=== PATIENT | female | born 1995 | race Caucasian/White ===

== ENCOUNTER 2021-01-23 05:37 | Emergency (ER) | payer OTHER ==
[~2021-01-23 05:37] MED LIST: PRENATAL VITAM1 EAC5 PO; UNISOM25 MG PO
[2021-01-23 06:13] LABS: HEMOGLOBIN 16.2 gm/dl (12.3-15.3); RED BLOOD COUNT 4.93 M/UL (4.00-5.10); WHITE BLOOD COUNT 13.3 K/UL (4.5-11.0)
[2021-01-23 06:39] LABS: BUN/CREATININE RATIO 17 (0-10)
[2021-01-23] MEDS ORDERED: PHENERGAN 25 MG25 M1 PO (09:49)
[2021-01-23] MEDS ORDERED: ZOFRAN ODT 4 MG4 MG SL (09:49)
== END 2021-01-23 10:11 | disposition home or self-care (01) ==
LOC: ER1 05:37
PROVIDERS: Emergency Medicine
DX: K52.9 Noninfective gastroenteritis and colitis, unspecified (principal); B34.9 Viral infection, unspecified; Z20.822 Contact with and (suspected) exposure to COVID-19
CPT/HCPCS: 72128; 72131; 80053; 83605; 83690; 84439; 84443; 84703; 85025; 87040; 93005; 96374; 96375; 96376; 99284; J2405; J7030; Q9967; U0002

== ENCOUNTER → 2021-01-29 | Outpatient (CLI) | payer SELFPAY ==
[~2021-01-29] MED LIST changes: +PHENERGAN 25 MG25 M1 PO; +ZOFRAN ODT 4 MG4 MG SL
== END ==
LOC: KOH-I 10:45
DX: M79.601 Pain in right arm (principal); I82.601 Acute embolism and thrombosis of unspecified veins of right upper extremity
CPT/HCPCS: 93971

== ENCOUNTER 2022-02-15 16:48 | Inpatient (IN) | payer OTHER ==
[~2022-02-15] VITALS: Ht 160 cm; Wt 66.2 kg
[2022-02-15] MEDS ORDERED: PRENATAL VITAM1 EAC3 PO (19:20)
[2022-02-15 19:24] LABS: RED BLOOD COUNT 3.76 M/UL (4.00-5.10); WHITE BLOOD COUNT 11.3 K/UL (4.5-11.0)
[2022-02-17] MEDS ORDERED: IBUPROFEN800 MG PO (14:46)
[2022-02-17] MEDS ORDERED: HYDROCODON-ACE1 EAC4 PO (14:46)
[2022-02-17] MEDS ORDERED: COLACE 100MG C100 MG PO (14:46)
== END 2022-02-17 16:20 | disposition home or self-care (01) | DRG 807 ==
LOC: GENOP 16:48 → OB 19:49
PROVIDERS: ADMIT Obstetrics & Gynecology
PROC: 10E0XZZ Delivery of Products of Conception, External Approach (ICD-10-PCS; principal; 2022-02-15)
PROC: 10907ZC Drainage of Amniotic Fluid, Therapeutic from Products of Conception, Via Natural or Artificial Opening (ICD-10-PCS; 2022-02-15)
PROC: 4A1HXCZ Monitoring of Products of Conception, Cardiac Rate, External Approach (ICD-10-PCS; 2022-02-15)
DX: O80 Encounter for full-term uncomplicated delivery (principal); Z37.0 Single live birth; Z3A.36 36 weeks gestation of pregnancy; Z20.822 Contact with and (suspected) exposure to COVID-19
CPT/HCPCS: 36415; 81001; 82800; 85014; 85018; 85025; J2590; J7120; U0002